=== PATIENT | male | born 1955 | race Asian ===

== ENCOUNTER → 2024-02-27 | Day surgery (SDC) | payer BC ==
[2024-02-24 14:48] LABS: BASOPHILS # (AUTO) 0.1 (0.0-0.1); BASOPHILS % 0.7 % (0.0-1.0); EOSINOPHILS # (AUTO) 0.1 (0.0-0.4); EOSINOPHILS % 1.2 % (0.0-6.0); HEMATOCRIT 42.6 % (38.2-49.6); HEMOGLOBIN 14.1 g/dL (14.0-18.0); LYMPHOCYTES # (AUTO) 2.8 (1.0-3.2); LYMPHOCYTES % 31.2 % (18.0-39.1); MEAN CORPUSCULAR HEMOGLOBIN 32.4 pg (28-32); MEAN CORPUSCULAR HGB CONC 33.1 g/dL (31-35); MEAN CORPUSCULAR VOLUME 97.9 fL (81-99); MONOCYTES # (AUTO) 0.8 (0.2-0.8); MONOCYTES % 8.4 % (4.4-11.3); NEUTROPHILS # (AUTO) 5.2 (2.1-6.9); NEUTROPHILS % 58.3 % (38.7-80.0); PLATELET COUNT 257 x10e3/uL (140-360); RED BLOOD COUNT 4.35 x10e6/uL (4.3-5.7); RED CELL DISTRIBUTION WIDTH 12.3 % (11.7-14.4)
[~2024-02-27] MED LIST: ACETAMINOPHEN 1000 MG/100 ML IV PRN; AMLODIPINE BESYL5 MG PO; ASPIRIN 325 MG TAB PO SCH; ASPIRIN81 MG PO; ATORVASTATIN CA10 MG PO; CELECOXIB 100 MG CAP PO SCH; CELECOXIB 200 MG CAP ONE; CLOPIDOGREL75 MG PO; DEXAMETHASONE SOD PHOS 10 MG/1 ML VIAL ONE; DIPHENHYDRAMINE HCL INJ 50 MG/ML VIAL IV PRN; DOCUSATE SODIUM 100 MG CAP PO PRN; DYRENIUM50 MG PO; EPINEPHRINE HCL 1:1000 1ML 1 MG/ML AMP ONE; FENTANYL CITRATE/PF 100MCG/2 ML INJ ONE; GLYCOPYRROLATE INJ 0.2 MG/ML VIAL ONE; HYDROCODONE/APAP 5MG-325MG TAB PO PRN; HYDROCODONE/APAP 7.5MG-325MG 1 EA TAB PO PRN; LIDOCAINE HCL 2% LOCAL INJ 5 ML SDV VIAL INJ ONE; LOSARTAN POTAS100 MG PO; METOPROLOL SUCC25 MG PO; MIDAZOLAM HCL 2 MG/2 ML VIAL ONE; NEOSTIGMINE 1 MG/ML 10ML VIAL ONE; ONDANSETRON HCL INJ 2MG/ML 2ML 2 MG/ML VIAL ONE; PROPOFOL IV EMULSION 10 MG/ML 20 ML VIAL ONE; ROCURONIUM BROMIDE 10 MG/ML 5ML VIAL IV ONE; ROPIVACAINE 0.5% 5 MG/ML 30 ML SDV ONE; ROPIVACAINE/EPI/CLONIDINE/KET 50 ML SYRINGE INJ ONE; SEVOFLURANE INHAL SOLN 250 ML PEN BTL ONE; SODIUM CHLORIDE 0.9% 1000ML 1,000 ML IV SCH; SODIUM CHLORIDE 0.9% 500ML 500 ML ONE; TRANEXAMIC ACID 20 ML ONE; Vancomycin IV 500 MG ONE
[2024-02-27] MEDS: CEFAZOLIN SODIUM 2 GM ONE (06:46)
[2024-02-27] MEDS: DEXAMETHASONE SOD PHOS 10 MG/1 ML VIAL ONE (06:46)
[2024-02-27] MEDS: LACTATED RINGER'S 1,000 ML ONE (06:47)
[2024-02-27] MEDS: GABAPENTIN 300 MG CAP ONE (06:47)
[2024-02-27] MEDS: MEPERIDINE HCL INJ 25 MG/ML VIAL ONE (09:53)
[2024-02-27 13:00] VITALS: BP 113/72; PULSE 87; RESP 16; O2SAT 97
== END | disposition home health service (06) ==
LOC: OR 05:52
PROVIDERS: ATTEND Specialist
DX: M17.12 Unilateral primary osteoarthritis, left knee (principal); M23.52 Chronic instability of knee, left knee; M25.762 Osteophyte, left knee; J84.10 Pulmonary fibrosis, unspecified; I10 Essential (primary) hypertension; Z79.02 Long term (current) use of antithrombotics/antiplatelets; Z79.82 Long term (current) use of aspirin; Z79.899 Other long term (current) drug therapy
CPT/HCPCS: 27447; 36415; 73560; 85025; 86850; 86900; 93005; 97116; 97161; 97530 ×2; C1713 ×2; C1776 ×3; J0171; J0690; J1100; J2003; J2175; J2250; J2405; J2704; J2710; J2795; J3010; J3370; J7040; J7121

== ENCOUNTER 2024-05-17 11:19 | Outpatient (RCR) | payer BC ==
[~2024-05-17 11:19] MED LIST changes: -ACETAMINOPHEN 1000 MG/100 ML IV PRN; -ASPIRIN 325 MG TAB PO SCH; -CELECOXIB 100 MG CAP PO SCH; -CELECOXIB 200 MG CAP ONE; -DEXAMETHASONE SOD PHOS 10 MG/1 ML VIAL ONE; -DIPHENHYDRAMINE HCL INJ 50 MG/ML VIAL IV PRN; -DOCUSATE SODIUM 100 MG CAP PO PRN; -EPINEPHRINE HCL 1:1000 1ML 1 MG/ML AMP ONE; -FENTANYL CITRATE/PF 100MCG/2 ML INJ ONE; -GLYCOPYRROLATE INJ 0.2 MG/ML VIAL ONE; -HYDROCODONE/APAP 5MG-325MG TAB PO PRN; -HYDROCODONE/APAP 7.5MG-325MG 1 EA TAB PO PRN; -LIDOCAINE HCL 2% LOCAL INJ 5 ML SDV VIAL INJ ONE; -MIDAZOLAM HCL 2 MG/2 ML VIAL ONE; -NEOSTIGMINE 1 MG/ML 10ML VIAL ONE; -ONDANSETRON HCL INJ 2MG/ML 2ML 2 MG/ML VIAL ONE; -PROPOFOL IV EMULSION 10 MG/ML 20 ML VIAL ONE; -ROCURONIUM BROMIDE 10 MG/ML 5ML VIAL IV ONE; -ROPIVACAINE 0.5% 5 MG/ML 30 ML SDV ONE; -ROPIVACAINE/EPI/CLONIDINE/KET 50 ML SYRINGE INJ ONE; -SEVOFLURANE INHAL SOLN 250 ML PEN BTL ONE; -SODIUM CHLORIDE 0.9% 1000ML 1,000 ML IV SCH; -SODIUM CHLORIDE 0.9% 500ML 500 ML ONE; -TRANEXAMIC ACID 20 ML ONE; -Vancomycin IV 500 MG ONE
== END 2024-06-15 ==
LOC: PT 11:19
PROVIDERS: ATTEND Physician Assistant
DX: Z47.1 Aftercare following joint replacement surgery (principal); Z96.652 Presence of left artificial knee joint

== ENCOUNTER 2025-02-11 09:00 | Outpatient (RCR) | payer MEDICARE | END 2025-02-12 | LOC: PT 09:00 | PROVIDERS: ATTEND Physician Assistant | DX: Z96.652 Presence of left artificial knee joint (principal); M79.18 Myalgia, other site; R26.9 Unspecified abnormalities of gait and mobility | CPT/HCPCS: 97032; 97110 ×8; 97162; G0283 ==